=== PATIENT | male | born 1960 | race Caucasian/White ===

== ENCOUNTER → 2016-11-28 | Outpatient (CLI) | payer BC ==
--- NOTE | 2016-11-28 14:41 | P.PN ---
Progress Note - Text This is a 56-year-old male with history of lower back pain with radiation to both lower extremities status post 3 lumbar epidural steroid injections. She reports significant relief of his pain especially in the lower extremities. He used to be on opioids but he quit using then and he would like to continue the same way. The patient denies any new neurologic symptoms or any bowel or bladder dysfunction. He did have a biopsy on his prostate recently but he does not have the results yet. Since the patient is doing well after the above-mentioned injections that he just had we will plan on seeing him on an as-needed basis I told the patient to give us a call if his pain comes back and then we can plan on doing another series of these injections, however the patient will hold up for a few more months.
== END | disposition home or self-care (01) ==
DX: M54.5 Low back pain (principal)
CPT/HCPCS: 99211

== ENCOUNTER → 2017-05-24 | Outpatient (CLI) | payer BC | END | disposition home or self-care (01) | LOC: LABWHC1 10:49 | PROVIDERS: ATTEND Urology | DX: C61 Malignant neoplasm of prostate (principal) | CPT/HCPCS: 36415; 84153 ==

== ENCOUNTER → 2018-02-22 | Outpatient (CLI) | payer BC ==
[2018-02-22 09:02] LABS: Basophils # (A) 0.1 k/uL (0-0.2); Basophils % (A) 1 %; Eosinophils # (A) 0.2 k/uL (0-0.7); Eosinophils % (A) 3 %; HCT 45.7 % (39.0-53.0); HGB 15.7 gm/dL (13.0-17.5); Lymphocytes # (A) 1.2 k/uL (1.0-4.8); Lymphocytes % (A) 23 %; MCH 31.3 pg (25.0-35.0); MCHC 34.2 g/dL (31.0-37.0); MCV 91.4 fL (80.0-100.0); Mean Platelet Volume 7.4; Monocytes # (A) 0.4 k/uL (0-1.0); Monocytes % (A) 7 %; Neutrophils # (A) 3.3 k/uL (1.3-7.7); Neutrophils % (A) 64 %; Platelet Count 190 k/uL (150-450); RDW 12.2 % (11.5-15.5); WBC 5.2 k/uL (3.8-10.6)
[2018-02-22 09:27] LABS: ALT 21 U/L (21-72); AST 22 U/L (17-59); Albumin 4.4 g/dL (3.5-5.0); Alkaline Phosphatase 70 U/L (38-126); Anion Gap 15 mmol/L; Blood Urea Nitrogen 18 mg/dL (9-20); Calcium 9.5 mg/dL (8.4-10.2); Carbon Dioxide 28 mmol/L (22-30); Chloride 100 mmol/L (98-107); Cholesterol 219 mg/dL (<200); Glucose 94 mg/dL (74-99); HDL Cholesterol 59 mg/dL (40-60); LDL Cholesterol,Calculated 148 mg/dL (0-99); Potassium 4.2 mmol/L (3.5-5.1); Sodium 143 mmol/L (137-145); Total Bilirubin 0.6 mg/dL (0.2-1.3); Total Protein 7.5 g/dL (6.3-8.2); Triglycerides 60 mg/dL (<150)
[2018-02-22 10:07] LABS: PSA Annual Screen <0.10 ng/mL (0.00-4.00)
== END ==
LOC: LABWHC1 08:01
PROVIDERS: ATTEND Nurse Practitioner Family
DX: C61 Malignant neoplasm of prostate (principal); E03.9 Hypothyroidism, unspecified; E78.2 Mixed hyperlipidemia; I10 Essential (primary) hypertension; Z12.5 Encounter for screening for malignant neoplasm of prostate
CPT/HCPCS: 80061; 80053; 84443; 85025; 36415; G0103

== ENCOUNTER → 2018-09-06 | Outpatient (CLI) | payer BC | LOC: LABWHC1 08:02 | PROVIDERS: ATTEND Urology | DX: C61 Malignant neoplasm of prostate (principal) | CPT/HCPCS: 36415; 84153 ==

== ENCOUNTER → 2018-09-13 | Outpatient (CLI) | payer BC ==
[2018-09-13 08:53] LABS: Basophils % (A) 1 %; Eosinophils # (A) 0.2 k/uL (0-0.7); Eosinophils % (A) 4 %; HCT 47.5 % (39.0-53.0); HGB 16.1 gm/dL (13.0-17.5); Lymphocytes # (A) 1.2 k/uL (1.0-4.8); Lymphocytes % (A) 24 %; MCH 32.3 pg (25.0-35.0); Mean Platelet Volume 6.8; Monocytes # (A) 0.3 k/uL (0-1.0); Monocytes % (A) 6 %; Neutrophils # (A) 3.2 k/uL (1.3-7.7); Neutrophils % (A) 63 %; Platelet Count 186 k/uL (150-450); RDW 12.6 % (11.5-15.5); WBC 5.2 k/uL (3.8-10.6)
[2018-09-13 10:35] LABS: ALT 33 U/L (21-72); AST 23 U/L (17-59); Albumin 4.2 g/dL (3.5-5.0); Alkaline Phosphatase 74 U/L (38-126); Anion Gap 7 mmol/L; Blood Urea Nitrogen 15 mg/dL (9-20); Calcium 9.3 mg/dL (8.4-10.2); Carbon Dioxide 26 mmol/L (22-30); Chloride 105 mmol/L (98-107); Cholesterol 241 mg/dL (<200); Glucose 99 mg/dL (74-99); HDL Cholesterol 51 mg/dL (40-60); LDL Cholesterol,Calculated 165 mg/dL (0-99); Potassium 4.4 mmol/L (3.5-5.1); Sodium 138 mmol/L (137-145); Total Bilirubin 0.8 mg/dL (0.2-1.3); Total Protein 7.5 g/dL (6.3-8.2); Triglycerides 126 mg/dL (<150)
[2018-09-13 11:06] LABS: PSA Annual Screen <0.10 ng/mL (0.00-4.00)
== END | disposition home or self-care (01) ==
LOC: LABWHC1 08:12
PROVIDERS: ATTEND Nurse Practitioner
DX: E78.2 Mixed hyperlipidemia (principal); E03.9 Hypothyroidism, unspecified; I10 Essential (primary) hypertension; Z12.5 Encounter for screening for malignant neoplasm of prostate
CPT/HCPCS: 80061; 80053; 84443; 85025; 36415; G0103

== ENCOUNTER 2022-04-18 06:43 | Day surgery (SDC) | payer BC ==
[2022-04-16 14:19] VITALS: BMI 29.6
[~2022-04-18 06:43] MED LIST: LACTATED RINGERS 1,000 ML IV SCH; LIDOCAINE 1% (10MG/ML) FOR IV START INTRADERMA PRN
[2022-04-18 07:26] VITALS: TEMP 98.2
[2022-04-18] MEDS ORDERED: LIDOCAINE 2% INJ 20 MG/ML (2 ML VIAL) ONE (08:06)
[2022-04-18] MEDS ORDERED: PROPOFOL 10 MG/ML 20 ML VIAL IV ONE (08:06)
--- NOTE | 2022-04-18 08:34 | P.PCN ---
Date of Procedure: 04/18/22 Procedure(s) Performed: Brief history: Patient is a pleasant 62-year-old white male scheduled for an elective upper endoscopy as well as colonoscopy as a part of evaluation of GERD and screening for colon cancer. His dad and sister were diagnosed with colon cancer at age 80 and 20 respectively. Procedure performed: Esophagogastroduodenoscopy Colonoscopy with snare polypectomy Preoperative diagnosis: GERD Screening for colon cancer/family history of colon cancer Anesthesia: MAC Procedure: After informed consent was obtained from the patient was brought into the endoscopy unit and IV sedation was administered by anesthesia under continuous monitoring. Initially upper endoscopy was done. The Olympus GF 160 video endoscope was inserted inserted into the mouth and esophagus intubated without any difficulty and was gradually advanced into the stomach and duodenum and carefully examined. The bulb and second part of the duodenum appeared normal. The scope was then withdrawn into the stomach adequately insufflated with air and upon careful examination the antrum and body, cardia and fundus appeared normal. The scope was then withdrawn into the esophagus. The GE junction was located at 40 cm to the incisors. Small hiatal hernia noted. They revealed linear erosions in the distal esophagus consistent with LA grade B reflux esophagitis. Rest of the esophagus appeared normal. Patient tolerated the procedure well. At this time the patient continued to remain sedation. Initial digital rectal examination was normal. Olympus CF 160 video colonoscope was then inserted into the rectum and gradually advanced to the cecum without any difficulty. Careful examination was performed as the scope was gradually being withdrawn. The prep was excellent. The cecum, appeared normal. Descending colon there was a 5 limited polyp removed by snare polypectomy. In the hepatic flexure there was a 7 mm sessile polyp removed by snare polypectomy. In the proximal transverse colon there was a 3 mm polyp removed by snare polypectomy. Rest of the descending colon, sigmoid colon and rectum appeared normal. Retroflexion was performed in the rectum and no lesions were noted. Patient tolerated the procedure well. Impression: 1. Upper endoscopy revealed small hiatal hernia and linear erosions in the distal esophagus consistent with LA grade B reflux esophagitis 2. Colonoscopy revealed: a) 5 mm ascending colon polyp status post polypectomy b) 7 mm hepatic flexure polyp status post polypectomy c) 3 mm transverse colon polyp status post polypectomy Recommendations: Findings of this examination were discussed with the patient well as his family. He was advised to start on omeprazole 20 mg daily to be taken half hour before dinnertime and follow antireflux measures. the biopsies adenoma he can have a repeat colonoscopy in 5 years.
[2022-04-18 09:27] VITALS: BP 140/67; PULSE 70; RESP 20
== END 2022-04-18 09:15 | disposition home or self-care (01) ==
LOC: ORWHC2ENDO 06:43
PROVIDERS: ATTEND Internal Medicine Gastroenterology
DX: K44.9 Diaphragmatic hernia without obstruction or gangrene (principal); D12.2 Benign neoplasm of ascending colon; D12.3 Benign neoplasm of transverse colon; K21.9 Gastro-esophageal reflux disease without esophagitis; Z80.0 Family history of malignant neoplasm of digestive organs
CPT/HCPCS: 45385; 43235; 88305; J2704; J2001

== ENCOUNTER → 2023-02-26 | Outpatient (CLI) | payer BC ==
--- NOTE | 2023-02-26 10:20 | CA ---
Stress Echo Report Fran Alvarez Age: 63 Gender: M : 1960 Exam Date: 02/26/2023 09:42 Exam Location: [facility] Ht (in): 68 Wt (lb): 195 Ordering Physician: Dena Walker DO Referring Physician: Sindy Agustin Bisque Tile Burner: Lora Martínez RDCS Technologist Procedure CPT: Indication: R07.9 CHEST PAIN, UNSPECIFIED ICD-9 Codes: Rhythm: Patient History: Hypertension, Hyperlipidemia, Family history Cardiac Medications: Medications in past 24 hours: Contrast: Stress Results Protocol: Luis Enrique Total dose(mL): Exercise Duration (min:sec): [address] Depression (mm): Angina Score: Botello Score: METS: 7.3 Resting HR: 90 Resting BP: 146 / 80 Peak HR: 164 Peak BP: 168 / 74 Max Predicted HR: 158 104 % Max Predicted HR Target HR: 134 Double Product: [id number] Stress Summary: The patient's target heart rate was achieved BP Response: Normal Reason for Termination: Reached target heart rate or work-load Cardiac Symptoms: Test terminated after reaching target heart rate (85% max predicted) ECG Analysis Resting ECG: Stress ECG: Arrhythmia: Echo Analysis Resting Echo: Peak Echo Analysis: MEASUREMENTS (Male/Female) Normal Values CONCLUSIONS Baseline EKG revealed normal sinus rhythm without significant ST-T changes, slightly leftward axis. Patient walked for 6 minutes on a standard Luis Enrique protocol and achieved a maximum heart rate of 164 bpm which is more than 100% of predicted maximal. Patient complained of some mild chest discomfort. EKG did not reveal any ST segment changes to indicate ischemia. There was no significant arrhythmia. Rare isolated PVCs were noted. By EKG criteria this is a unremarkable stress test with no evidence of ischemia. Patient had chest discomfort but seems atypical Baseline echo images revealed normal wall motion wall thickening of all segments. At peak exercise there was good augmentation of left ventricular wall motion wall thickening of all segments suggesting that there is no evidence of any stress-induced ischemia on this stress echocardiogram Final impression: #1 normal stress test by EKG criteria with atypical chest pain #2 normal stress echocardiogram without evidence of ischemia Dr. Kulwant Alexis MD (Electronically Signed) Final Date: 26 February 2023 10:19
== END | disposition home or self-care (01) ==
LOC: RADNMMAIN 09:02
PROVIDERS: ATTEND Family Medicine
DX: R07.9 Chest pain, unspecified (principal)
CPT/HCPCS: 93351

== ENCOUNTER → 2023-03-16 | Outpatient (CLI) | payer BC ==
[2023-03-16 13:41] LABS: Basophils # (A) 0.06 X 10*3/uL (0.00-0.10); Basophils % (A) 1.1 %; Eosinophils # (A) 0.13 X 10*3/uL (0.04-0.35); Eosinophils % (A) 2.5 %; HCT 47.3 % (39.6-50.0); Immature Grans, Automated 0.2 %; Lymphocytes # (A) 1.36 X 10*3/uL (0.90-5.00); MCH 32.1 pg (27.0-32.0); MCHC 33.8 g/dL (32.0-37.0); Mean Platelet Volume 11.2 fL (9.5-12.2); Monocytes # (A) 0.57 X 10*3/uL (0.20-1.00); Monocytes % (A) 10.9 %; NRBC Per 100 WBC 0 /100 WBCS (0.0-0.0); Neutrophils % (A) 59.3 %; Platelet Count 149 X 10*3/uL (140-440); RBC 4.98 X 10*6/uL (4.40-5.60); WBC 5.23 X 10*3/uL (4.50-10.00)
[2023-03-16 13:56] LABS: ALT 25 U/L (10-49); AST 25 U/L (14-35); African American GFR (CKD) 105.7 (60.0-200.0); Albumin 4.3 g/dL (3.8-4.9); Albumin/Globulin Ratio 1.65 (1.60-3.17); Alkaline Phosphatase 90 U/L (41-126); Blood Urea Nitrogen 15.3 mg/dL (9.0-27.0); Calcium 9.3 mg/dL (8.7-10.3); Carbon Dioxide 23.9 mmol/L (20.0-27.5); Chloride 106 mmol/L (96-109); Chol/HDL Ratio 2.95 Ratio; Globulin 2.6 g/dL (1.6-3.3); Glucose 88 mg/dL (70-110); LDL Cholesterol,Calculated 84.7 mg/dL (0.0-131.0); Non-African American GFR(CKD) 91.2 (60.0-200.0); Potassium 4.5 mmol/L (3.5-5.5); Sodium 141 mmol/L (135-145); Total Protein 6.9 g/dL (6.2-8.2)
== END | disposition home or self-care (01) ==
LOC: LABWHC1 08:21
PROVIDERS: ATTEND Family Medicine
DX: I10 Essential (primary) hypertension (principal); E78.2 Mixed hyperlipidemia; E03.9 Hypothyroidism, unspecified
CPT/HCPCS: 36415; 80053; 80061; 84443; 85025